=== PATIENT | female | born 1970 | race Two or more races ===

== ENCOUNTER 2021-06-19 12:41 | Outpatient (CLI) | payer BC ==
[2021-06-20 08:27] LABS: SARS-CoV-2 PCR by NAA Not Detected (NotDetected)
== END 2021-06-19 12:42 | disposition home or self-care (01) ==
LOC: CSHLAB 12:41
PROVIDERS: ATTEND Internal Medicine
DX: Z20.822 Contact with and (suspected) exposure to COVID-19 (principal)
CPT/HCPCS: U0003; U0005

== ENCOUNTER 2021-06-28 09:09 | Outpatient (CLI) | payer BC ==
[2021-06-28 23:00] LABS: SARS-CoV-2 PCR by NAA Not Detected (NotDetected)
== END 2021-06-28 09:10 | disposition home or self-care (01) ==
LOC: CSHLAB 09:09
PROVIDERS: ATTEND Internal Medicine
DX: Z20.822 Contact with and (suspected) exposure to COVID-19 (principal)
CPT/HCPCS: U0003; U0005

== ENCOUNTER 2021-07-03 12:57 | Outpatient (CLI) | payer BC | END 2021-07-03 12:58 | disposition home or self-care (01) | LOC: CSHCP 12:57 | PROVIDERS: ATTEND Internal Medicine | DX: M35.05 Sjogren syndrome with inflammatory arthritis (principal) | CPT/HCPCS: 94060; 94726; 94729; 94760 ==